=== PATIENT | female | born 1985 | race Two or more races ===

== ENCOUNTER 2024-11-27 22:15 | Emergency (ER) | payer OTHER ==
[~2024-11-27] VITALS: Ht 165.1 cm; Wt 93.0 kg
[2024-11-27 22:22] VITALS: TEMP 98.5
[2024-11-27 22:39] VITALS: BP 135/70; O2SAT 97
== END 2024-11-27 23:45 ==
LOC: ER 22:17 → EDBD 22:17 → ER 23:45
DX: R42 Dizziness and giddiness (principal); E16.2 Hypoglycemia, unspecified; Z65.3 Problems related to other legal circumstances; Z60.2 Problems related to living alone
CPT/HCPCS: 82962-TC